=== PATIENT | male | born 1970 | race African-American/Black ===

== ENCOUNTER 2023-02-03 09:19 | Outpatient (CLI) | payer MEDICARE | END 2023-02-03 09:20 | disposition home or self-care (01) | LOC: CSHMRI 09:19 | PROVIDERS: ATTEND Surgery | DX: M51.16 Intervertebral disc disorders with radiculopathy, lumbar region (principal); M47.26 Other spondylosis with radiculopathy, lumbar region | CPT/HCPCS: 72148 ==